=== PATIENT | female | born 1995 | race American Indian/Alaskan Native ===

== ENCOUNTER 2017-01-12 11:54 | Outpatient (CLI) | payer MEDICAID ==
[2017-01-12] MEDS ORDERED: LACTATED RINGERS 500 ML IV ONE (12:09)
[2017-01-12 12:22] VITALS: BP 109/70
[2017-01-12] MEDS ORDERED: LACTATED RINGERS 1,000 ML ONE (13:25)
[2017-01-12 14:00] LABS: Bilirubin,Urine NEG (Negative); Blood,Urine NEG (Negative); Ketones,Urine NEG (Negative); Leukocyte Esterase,Urine MOD (Negative); Mucus,Urine 3+ /HPF; Nitrite,Urine NEG (Negative); Protein,Urine <15 mg/dL mg/dL (Negative); Urobilinogen,Urine < 2.0 mg/dL (<2.0)
== END 2017-01-12 16:24 | disposition home or self-care (01) ==
LOC: TRG 11:54
PROVIDERS: ATTEND Obstetrics & Gynecology
DX: O47.02 False labor before 37 completed weeks of gestation, second trimester (principal); Z3A.24 24 weeks gestation of pregnancy
CPT/HCPCS: 59025; 81001; 96360; J7120

== ENCOUNTER 2017-01-14 17:04 | Outpatient (CLI) | payer MEDICAID ==
[2017-01-14 17:26] VITALS: BP 100/63
[2017-01-14] MEDS ORDERED: LACTATED RINGERS 500 ML IV ONE (17:40)
[2017-01-14] MEDS ORDERED: TYLENOL ONE (17:54)
[2017-01-14] MEDS ORDERED: LACTATED RINGERS 1,000 ML ONE (17:54)
[2017-01-14] MEDS ORDERED: TYLENOL PO ONE (18:15)
[2017-01-14 18:36] LABS: Bilirubin,Urine NEG (Negative); Blood,Urine NEG (Negative); Hematocrit 33.4 % (30.3-42.9); Hemoglobin 10.9 gm/dl (10.1-14.3); Ketones,Urine NEG (Negative); Leukocyte Esterase,Urine SM (Negative); Mean Corpuscular HGB Conc 33 % (30-34); Mean Corpuscular Volume 80 fl (79-97); Mucus,Urine 3+ /HPF; Nitrite,Urine NEG (Negative); Platelet Count 169 K/mm3 (140-440); Protein,Urine <15 mg/dL mg/dL (Negative); Urobilinogen,Urine < 2.0 mg/dL (<2.0); White Blood Count 5.6 K/mm3 (4.5-11.0)
[2017-01-14 18:38] LABS: Mean Corpuscular Hemoglobin 26 pg (28-32); Red Cell Distribution Width 25.4 % (13.2-15.2)
[2017-01-14] MEDS ORDERED: BENADRYL PO ONE (19:26)
== END 2017-01-14 19:43 | disposition home or self-care (01) ==
LOC: TRG 17:04
PROVIDERS: ATTEND Obstetrics & Gynecology
DX: O47.02 False labor before 37 completed weeks of gestation, second trimester (principal); Z3A.24 24 weeks gestation of pregnancy
CPT/HCPCS: 36415; 59025; 81001; 85027; 96360; J7120

== ENCOUNTER 2017-03-18 17:20 | Outpatient (CLI) | payer MEDICAID ==
[2017-03-18] MEDS ORDERED: TYLENOL PO ONE (18:48)
[2017-03-18 18:57] LABS: Bacteria,Urine 1+ /HPF (Negative); Bilirubin,Urine NEG (Negative); Blood,Urine SM (Negative); Ketones,Urine NEG (Negative); Leukocyte Esterase,Urine LG (Negative); Mucus,Urine FEW /HPF; Nitrite,Urine NEG (Negative); Protein,Urine <15 mg/dL mg/dL (Negative); Urobilinogen,Urine < 2.0 mg/dL (<2.0)
[2017-03-19 12:14] VITALS: BP 114/61
== END 2017-03-18 19:05 | disposition home or self-care (01) ==
LOC: TRG 17:20
PROVIDERS: ATTEND Obstetrics & Gynecology
DX: O47.03 False labor before 37 completed weeks of gestation, third trimester (principal); Z3A.31 31 weeks gestation of pregnancy
CPT/HCPCS: 59025; 81001

== ENCOUNTER 2017-04-14 17:58 | Outpatient (CLI) | payer MEDICAID ==
[2017-04-14 19:18] VITALS: BP 116/87
[2017-04-14] MEDS ORDERED: LACTATED RINGERS 1,000 ML IV ONE (19:23)
[2017-04-14 20:40] LABS: Bilirubin,Urine NEG (Negative); Blood,Urine NEG (Negative); Ketones,Urine NEG (Negative); Leukocyte Esterase,Urine NEG (Negative); Nitrite,Urine NEG (Negative); Protein,Urine <15 mg/dL mg/dL (Negative); RBC,Urine < 1.0 /HPF (0.0-6.0); Urobilinogen,Urine < 2.0 mg/dL (<2.0)
[2017-04-14] MEDS ORDERED: VISTARIL PO PRN (22:09)
== END 2017-04-14 22:29 | disposition home or self-care (01) ==
LOC: TRG 17:58
PROVIDERS: ATTEND Obstetrics & Gynecology
DX: O47.03 False labor before 37 completed weeks of gestation, third trimester (principal); Z3A.36 36 weeks gestation of pregnancy
CPT/HCPCS: 81001; J7120; Q0177

== ENCOUNTER 2017-04-18 09:31 | Inpatient (IN) | payer MEDICAID ==
[2017-04-18] MEDS ORDERED: LACTATED RINGERS 1,000 ML ONE (10:02)
[2017-04-18] MEDS ORDERED: BRETHINE IVP PRN (10:05)
[2017-04-18] MEDS ORDERED: ZOFRAN IV PRN ×2 (10:05→12:57)
[2017-04-18] MEDS ORDERED: SUBLIMAZE IV PRN (10:05)
[2017-04-18] MEDS ORDERED: POLYCILLIN/NS 2 GM/100 ML 2 GM/100 ML BAG IV ONE (10:05)
[2017-04-18] MEDS ORDERED: BRETHINE SUB-Q PRN (10:05)
[2017-04-18] MEDS ORDERED: XYLOCAINE 2% INFILTRATI ONE (10:05)
[2017-04-18] MEDS ORDERED: MINERAL OIL PO PRN (10:05)
[2017-04-18] MEDS ORDERED: STADOL IV PRN (10:05)
[2017-04-18] MEDS ORDERED: PHENERGAN PO PRN ×2 (10:05→12:57)
[2017-04-18] MEDS ORDERED: ePHEDrine SULFATE IV PRN ×2 (10:05→11:23)
[2017-04-18] MEDS ORDERED: NARCAN 0.4 MG/1 ML IV PRN (10:05)
--- NOTE | 2017-04-18 10:05 | History and Physical Report ---
History of Present Illness Date of examination: 04/18/17 Date of admission: 04/18/17 09:31 Chief complaint: Water broke History of present illness: Pt is a 21yo BF EDC 05/07/17; EGA 37 2/7 weeks presents to L&D complaining of SROM clear fluid at 0800 followed by irregular contractions. She received care at [facility], but records are not available, and GBS is unknown. Past History Past Medical History: no pertinent history Past Surgical History: no surgical history Family/Genetic History: none Social history: no significant social history, single - Obstetrical History Expected Date of Delivery: 05/07/17 Actual Gestation: 37 Week(s) 2 Day(s) : 1 Medications and Allergies Allergies Allergy/AdvReac Type Severity Reaction Status Date / Time No Known Allergies Allergy Verified 03/18/17 17:55 Home Medications Medication Instructions Recorded Confirmed Last Taken Type Ferrous Sulfate [Ferrous Sulfate] 1 tab PO TID 03/18/17 04/18/17 04/18/17 History Pnv with Ca,No.72/Iron/FA [Pnv 1 tab PO DAILY 03/18/17 04/18/17 04/18/17 History Plus Multivit Tab] Review of Systems All systems: negative - Vital Signs Vital signs: Vital Signs Pulse BP 102 H 124/87 04/18/17 09:56 04/18/17 09:56 Temp Pulse Resp BP Pulse Ox 102 H 124/87 04/18/17 09:56 04/18/17 09:56 - Physical Exam Breasts: Positive: deferred Cardiovascular: Regular rate Lungs: Positive: Clear to auscultation Abdomen: Positive: normal appearance Genitourinary (Female): Positive: normal external genitalia Uterus: Positive: enlarged Extremities: Positive: normal - Obstetrical FHR: category 1 Uterine Contraction Monitor Mode: External Cervical Dilatation: 4 Cervical Effacement Percentage: 70 station: -2 Uterine Contraction Pattern: Irregular Uterine Tone Measurement Phase: Contraction Uterine Contraction Intensity: Mild Results Result Diagrams: 04/18/17 10:05 All other labs normal. Assessment and Plan - Patient Problems (1) 37 weeks gestation of Onset Date: 04/18/17 Current Visit: Yes Status: Acute Plan to address problem: A: IUP @ 37 2/7 weeks in labor Unknown GBS P: Admit to L&D for expectant vaginal delivery IV Ampicillin Obtain records
[2017-04-18] MEDS ORDERED: PITOCin/NS 20 UNIT/1000ML DRIP 20 UNITS/1,000 ML BAG IV SCH ×2 (11:00→13:00)
[2017-04-18] MEDS ORDERED: PITOCin/NS 30 UNIT/500ML 30 UNITS/500 ML BAG IV SCH ×2 (11:00)
[2017-04-18] MEDS ORDERED: LACTATED RINGERS 1,000 ML IV SCH (11:00)
[2017-04-18 11:13] LABS: Hemoglobin 12.3 gm/dl (10.1-14.3); Mean Corpuscular HGB Conc 32 % (30-34); Mean Corpuscular Hemoglobin 28 pg (28-32); Mean Corpuscular Volume 88 fl (79-97); Platelet Count 142 K/mm3 (140-440); Red Blood Count 4.34 M/mm3 (3.65-5.03); Red Cell Distribution Width 17.1 % (13.2-15.2); White Blood Count 7.5 K/mm3 (4.5-11.0)
[2017-04-18] MEDS ORDERED: NARCAN 2 MG/2 ML IV PRN (11:23)
--- NOTE | 2017-04-18 11:23 | Anesthesia Consultation ---
Anesthesia Consult and Med Hx Date of service: 04/18/17 - Airway Anesthetic Teeth Evaluation: Good ROM Head & Neck: Adequate Mental/Hyoid Distance: Adequate Mallampati Class: Class II Intubation Access Assessment: Probably Good - Pulmonary Exam CTA: Yes - Cardiac Exam Cardiac Exam: RRR - Pre-Operative Health Status ASA Pre-Surgery Classification: ASA2 Proposed Anesthetic Plan: Epidural - Pulmonary Hx Asthma: No COPD: No Hx Pneumonia: No - Cardiovascular System Hx Hypertension: No - Central Nervous System Hx Seizures: No Hx Psychiatric Problems: No - Endocrine Hx Renal Disease: No Hx End Stage Renal Disease: No Hx Hypothyroidism: No Hx Hyperthyroidism: No - Hematic Hx Anemia: No Hx Sickle Cell Disease: No - Other Systems Hx Alcohol Use: No
[2017-04-18] MEDS ORDERED: fentaNYL-BUPIV 2 MCG/ML-0.125% 200 MCG/100 ML BAG EPIDURAL SCH (12:00)
[2017-04-18] MEDS ORDERED: MILK OF MAGNESIA PO PRN (12:57)
[2017-04-18] MEDS ORDERED: LANSINOH TP PRN (12:57)
[2017-04-18] MEDS ORDERED: BENADRYL PO PRN (12:57)
[2017-04-18] MEDS ORDERED: TYLENOL PO PRN (12:57)
[2017-04-18] MEDS ORDERED: DULCOLAX PR PRN (12:57)
[2017-04-18] MEDS ORDERED: NORCO 5/325 PO PRN (12:57)
[2017-04-18] MEDS ORDERED: PHENERGAN PR PRN (12:57)
[2017-04-18] MEDS ORDERED: TUCKS PAD TP PRN (12:57)
--- NOTE | 2017-04-18 12:57 | Procedure Note ---
OB Delivery Note - Delivery Date of Delivery: 04/18/17 Surgeon: TIMOTEO VENCES Estimated blood loss: 100cc - Vaginal Delivery presentation: vertex Delivery position: OA Intrapartum events: precipitous labor- <3hr Delivery induction: oxytocin Delivery augmentation: rupture of membranes Delivery monitor: external FHT, external uterine Route of delivery: Delivery placenta: spontaneous Delivery cord: 3 umbilical vessels Episiotomy: none Delivery laceration: none Anesthesia: epidural Delivery comments: placed on Mom's chest for [id number] bonding and delayed cord clamping. - Infant A at 1 minute: 8 at 5 minutes: 9 Gender: Female (2099gms)
[2017-04-18] MEDS ORDERED: SODIUM CHLORIDE FLUSH SYRINGE 10 ML IV NR (13:00)
[2017-04-18] MEDS ORDERED: POLYCILLIN/NS 1 GM/50 ML 1 GM/50 ML BAG IV SCH (14:09)
[2017-04-18] MEDS: MOTRIN PO SCH ×2 (16:34→22:18)
[2017-04-18] MEDS: FEOSOL PO SCH (22:17)
[2017-04-18] MEDS: COLACE PO SCH (22:18)
[2017-04-19 00:38] LABS: Hematocrit 32.3 % (30.3-42.9); Hemoglobin 10.8 gm/dl (10.1-14.3)
[2017-04-19] MEDS: SENOKOT S PO SCH (01:05)
[2017-04-19] MEDS: MOTRIN PO SCH ×4 (01:16→18:43)
[2017-04-19] MEDS ORDERED: PRENATAL VITAMIN PO SCH (10:00)
[2017-04-19] MEDS ORDERED: DEPO-PROVERA (CONTRACEPTION) IM ONE (11:03)
--- NOTE | 2017-04-19 11:06 | Progress Note ---
Assessment and Plan A: PP Day #1 Stable P: Follow Routine Orders D/C home in the AM Depo Provera 150mg IM prior to discharge RTO in 6 Weeks Subjective - Subjective Date of service: 04/19/17 Patient reports: appetite normal, voiding normally, pain well controlled, flatus , ambulating normally : doing well, bottle feeding Objective - Vital Signs Latest vital signs: Vital Signs Temp Pulse Pulse Resp BP BP Pulse Ox 04/19/17 09:38 98.2 F 60 18 127/87 04/19/17 04:38 18 04/19/17 00:10 97.8 F 80 18 116/73 04/18/17 22:18 18 04/18/17 20:25 98.5 F 61 18 130/84 04/18/17 13:59 99.6 F 18 131/78 04/18/17 13:51 80 131/78 04/18/17 13:39 80 137/70 04/18/17 13:35 98.0 F 18 129/81 04/18/17 13:23 161/84 04/18/17 13:08 83 134/68 04/18/17 13:04 91 H 129/81 04/18/17 12:53 90 150/89 04/18/17 12:44 104 H 93 04/18/17 12:41 93 H 99 04/18/17 12:38 96 H 162/99 04/18/17 12:36 96 H 100 04/18/17 12:31 88 100 04/18/17 12:25 87 148/88 100 04/18/17 12:23 93 H 148/97 04/18/17 12:21 92 H 100 04/18/17 12:16 98.0 F 86 18 133/84 100 04/18/17 12:11 89 100 04/18/17 12:08 82 133/84 04/18/17 12:06 90 128/82 04/18/17 12:05 82 100 04/18/17 12:04 76 125/75 04/18/17 12:02 84 129/78 04/18/17 12:01 88 100 04/18/17 12:00 86 133/77 04/18/17 11:58 77 112/71 04/18/17 11:56 86 120/75 99 04/18/17 11:54 86 121/76 04/18/17 11:52 95 H 134/77 04/18/17 11:51 94 H 100 04/18/17 11:50 90 135/77 04/18/17 11:48 90 129/80 04/18/17 11:46 96 H 131/80 04/18/17 11:45 99 H 100 04/18/17 11:44 100 H 142/83 04/18/17 11:42 82 123/75 04/18/17 11:41 94 H 100 04/18/17 11:40 84 134/80 04/18/17 11:38 73 122/75 04/18/17 11:36 81 100 04/18/17 11:35 82 134/83 04/18/17 11:32 84 139/79 04/18/17 11:30 84 116/73 04/18/17 11:29 74 100 04/18/17 11:28 87 128/81 04/18/17 11:26 82 126/83 04/18/17 11:24 88 121/76 99 Intake and Output 04/18/17 04/19/17 04/19/17 22:59 06:59 14:59 Intake Total 480 360 120 Output Total 600 Balance -120 360 120 Intake: Oral 480 360 120 Output: Urine 600 Void 600 Other: Total, Intake Amount 240 120 120 Total, Output Amount 600 # Voids Void 1 1 1 - Exam Breasts: Present: normal Cardiovascular: Present: Regular rate Lungs: Present: Clear to auscultation, Normal air movement Abdomen: Present: normal appearance, soft, normal bowel sounds Uterus: Present: normal, firm, fundal height below umbilicus Extremities: Present: normal - Labs Labs: Abnormal lab results 04/18/17 Range/Units 10:05 RDW 17.1 H (13.2-15.2) %
--- NOTE | 2017-04-19 11:07 | Discharge Summary ---
Providers - Providers Date of Admission: 04/18/17 09:31 Date of discharge: 04/20/17 Attending physician: TIMOTEO LEONARD MD Primary care physician: TIMOTEO LEONARD MD Hospitalization Reason for admission: active labor Delivery: Episiotomy: none Laceration: none Other procedures: none complications: none Discharge diagnosis: IUP at term delivered [place] baby: female Condition at discharge: Good Disposition: DC-01 TO HOME OR SELFCARE Plan - Provider Discharge Summary Activity: routine, no sex for 6 weeks, no heavy lifting 4 weeks, no strenuous exercise Diet: routine Instructions: routine Additional instructions: [] Smoking cessation referral if applicable(refer to patient education folder for contact #) [] Refer to [facility] Booklet Call your doctor immediately for: * Fever > 100.5 * Heavy vaginal bleeding ( >1 pad per hour) * Severe persistent headache * Shortness of breath * Reddened, hot, painful area to leg or breast * Drainage or odor from incision. * Keep incision clean and dry at all times and follow doctor's instructions regarding bathing/showering - Follow up plan Follow up: NAVEEN MIXON CNM [Advanced Practice Nurse] - 7 Days
[2017-04-19] MEDS: COLACE PO SCH (11:40)
[2017-04-19] MEDS: FEOSOL PO SCH (11:41)
[2017-04-19] MEDS ORDERED: BOOSTRIX IM ONE (12:57)
[2017-04-19] MEDS ORDERED: M-M-R II VACCINE SUB-Q ONE (12:57)
[2017-04-20] MEDS: MOTRIN PO SCH ×2 (00:32→05:44)
[2017-04-20] MEDS: SENOKOT S PO SCH (00:34)
[2017-04-20 09:38] VITALS: BP 137/86
== END 2017-04-20 11:35 | disposition home or self-care (01) | DRG 775 ==
LOC: LD 09:31 → OB 14:21
PROVIDERS: ADMIT Obstetrics & Gynecology; ATTEND Obstetrics & Gynecology
PROC: 10E0XZZ Delivery of Products of Conception, External Approach (ICD-10-PCS; principal; 2017-04-18)
PROC: 3E033VJ Introduction of Other Hormone into Peripheral Vein, Percutaneous Approach (ICD-10-PCS; 2017-04-18)
PROC: 00HU33Z Insertion of Infusion Device into Spinal Canal, Percutaneous Approach (ICD-10-PCS; 2017-04-18)
PROC: 3E0R3CZ (ICD-10-PCS; 2017-04-18)
DX: O62.3 Precipitate labor (principal); O42.02 Full-term premature rupture of membranes, onset of labor within 24 hours of rupture; Z3A.37 37 weeks gestation of pregnancy; Z37.0 Single live birth
CPT/HCPCS: 36415; 85014; 85018; 85027; 86850; 86900; 86901; 99211; G0463; J0290; J0595; J1050; J2590; J7120

== ENCOUNTER 2019-08-18 12:15 | Emergency (ER) | payer SELFPAY ==
--- NOTE | 2019-08-18 12:58 | Emergency Department Report ---
Blank Doc - Documentation Documentation: 24 y/o female presents to ED c/o 1 week of constipation and upper adominal pain associated with lower chest pain. Had normal BM yesterday for first time and it didnt help symptoms This initial assessment/diagnostic orders/clinical plan/treatment(s) is/are subject to change based on patient's health status, clinical progression and re- assessment by fellow clinical providers in the ED. Further treatment and workup at subsequent clinical providers discretion. Patient/guardians urged not to elope from the ED as their condition may be serious if not clinically assessed and managed. Initial orders include: KUB and urine with labxs.
[2019-08-18 12:59] VITALS: BP 109/68
--- NOTE | 2019-08-18 14:23 | Emergency Department Report ---
ED Abdominal Pain HPI - General Chief Complaint: Abdominal Pain Stated Complaint: LOWER ABD PAIN Time Seen by Provider: 08/18/19 12:57 Source: patient Mode of arrival: Ambulatory Limitations: No Limitations - History of Present Illness Initial Comments: 24-year-old -Irish female presents to the emergency room complaining of upper abdominal pain and back pain 5 days. Patient states she feels like she is having spasms in her back. Patient denies any nausea vomiting no diarrhea but has had constipation most of the week but had a BM yesterday which she reports did not help her symptoms and did not feel she emptied. MD Complaint: abdominal pain Onset/Timin -: week(s) Location: epigastric Radiation: none Migration to: no migration Severity scale (0 -10): 7 Quality: sharp Consistency: intermittent Improves With: nothing Worsens With: nothing Associated Symptoms: constipation. denies: nausea, vomiting, diarrhea, fever, dysuria - Related Data LMP Date: 07/24/19 Home Medications Medication Instructions Recorded Confirmed Last Taken Ferrous Sulfate 1 tab PO TID 03/18/17 04/18/17 04/18/17 Pnv,Calcium 72/Iron/Folic Acid 1 tab PO DAILY 03/18/17 04/18/17 04/18/17 [Pnv Plus Multivit Tab] Previous Rx's Medication Instructions Recorded Last Taken Type Ibuprofen [Motrin 600 MG tab] 600 mg PO Q8H PRN #21 tablet 08/18/19 Unknown Rx Polyethylene Glycol 3350 [Miralax] 70 gm PO QDAY #1 box 08/18/19 Unknown Rx Allergies Allergy/AdvReac Type Severity Reaction Status Date / Time No Known Allergies Allergy Verified 03/18/17 17:55 ED Review of Systems ROS: Stated complaint: LOWER ABD PAIN Other details as noted in HPI Comment: All other systems reviewed and negative Constitutional: denies: chills, fever Eyes: denies: eye pain, eye discharge, vision change ENT: denies: ear pain, throat pain ED Past Medical Hx - Past Medical History Previous Medical History?: No Hx Hypertension: No Hx Congestive Heart Failure: No Hx Diabetes: No Hx Deep Vein Thrombosis: No Hx Renal Disease: No Hx Sickle Cell Disease: No Hx Seizures: No Hx Asthma: No Hx COPD: No Hx HIV: No - Surgical History Past Surgical History?: No - Social History Smoking Status: Never Smoker Substance Use Type: Alcohol - Medications Home Medications: Home Medications Medication Instructions Recorded Confirmed Last Taken Type Ferrous Sulfate 1 tab PO TID 03/18/17 04/18/17 04/18/17 History Pnv,Calcium 72/Iron/Folic Acid 1 tab PO DAILY 03/18/17 04/18/17 04/18/17 History [Pnv Plus Multivit Tab] Ibuprofen [Motrin 600 MG tab] 600 mg PO Q8H PRN #21 tablet 08/18/19 Unknown Rx Polyethylene Glycol 3350 [Miralax] 70 gm PO QDAY #1 box 08/18/19 Unknown Rx ED Physical Exam - General Limitations: No Limitations General appearance: alert, in no apparent distress - Head Head exam: Present: atraumatic, normocephalic - Eye Eye exam: Present: normal appearance - ENT ENT exam: Present: mucous membranes moist ED Course Vital Signs 08/18/19 12:56 Temperature 98.6 F Pulse Rate 91 H Respiratory 16 Rate Blood Pressure 109/68 O2 Sat by Pulse 97 Oximetry ED Medical Decision Making - Radiology Data Radiology results: report reviewed Patient: SAI BARBOSA MR#: [id number] : 1995 Acct:[id number] Age/Sex: 24 / F ADM Date: 08/18/19 Loc: ED Attending Dr: Ordering Physician: EUSEBIO THURMAN Date of Service: 08/18/19 Procedure(s): XR abd series w cxr 1V Accession Number(s): [id number] cc: EUSEBIO THURMAN Fluoro Time In Minutes: ABDOMINAL SERIES WITH CHEST X-RAY ONE VIEW HISTORY: Abdominal pain FINDINGS: Single view of the chest is normal. Supine and upright views of the abdomen demonstrate an unremarkable bowel gas pattern. No evidence for dilated bowel, fluid levels, free air or pathologic calcifications. Moderate to severe thoracolumbar scoliosis is noted. IMPRESSION: No acute abdominal process. Scoliosis. Signer Name: Kyaw Paul Jr, MD Signed: 08/18/2019 3:37 PM Workstation Name: [id number] Transcribed By: TTR Dictated By: KYAW PUAL JR, MD Electronically Authenticated By: KYAW PAUL JR, MD Signed Date/Time: 08/18/19 1537 DD/ 1536 TD/TT: - Medical Decision Making 24-year-old -Irish female presents to the emergency room complaining of upper abdominal pain and back pain 5 days. Patient states she feels like she is having spasms in her back. Patient denies any nausea vomiting no diarrhea but has had constipation most of the week but had a BM yesterday which she reports did not help her symptoms and did not feel she emptied. Critical care attestation.: If time is entered above; I have spent that time in minutes in the direct care of this critically ill patient, excluding procedure time. ED Disposition Clinical Impression: Nonspecific abdominal pain, Spasm of back muscles Scoliosis of thoracic spine Qualifiers: Scoliosis type: unspecified scoliosis Qualified Code(s): M41.9 - Scoliosis, unspecified Constipation Qualifiers: Constipation type: slow transit constipation Qualified Code(s): K59.01 - Slow transit constipation Disposition: DC-01 TO HOME OR SELFCARE Is pt being admited?: No Does the pt Need Aspirin: No Condition: Stable Instructions: Abdominal Pain (ED) Prescriptions: Polyethylene Glycol 3350 [Miralax] 70 gm PO QDAY #1 box Ibuprofen [Motrin 600 MG tab] 600 mg PO Q8H PRN #21 tablet PRN Reason: Pain , Severe (7-10) Referrals: [facility] [Provider Group] - 3-5 Days Forms: Accompanied Note, Work/School Release Form(ED)
[2019-08-18 15:07] LABS: Alanine Aminotransferase 13 units/L (7-56); Albumin 4.6 g/dL (3.9-5); BUN/Creatinine Ratio 24; Blood Urea Nitrogen 17 mg/dL (7-17); Calcium 9.2 mg/dL (8.4-10.2); Hemolysis Index 2
[2019-08-18 15:11] LABS: Color,Urine Yellow (Yellow)
[2019-08-18 15:12] LABS: Bilirubin,Urine Negative (Negative); Blood,Urine Negative (Negative); HCG Qualitative,Urine Negative (Negative); Mucus,Urine 3+ /HPF; Urobilinogen,Urine < 2.0 mg/dL (<2.0)
[2019-08-18 15:33] LABS: Basophils # (Auto) 0.1 K/mm3 (0.0-0.1); Eosinophils # (Auto) 0.2 K/mm3 (0.0-0.4); Eosinophils % (Auto) 3.7 % (0.0-4.3); Hematocrit 32.7 % (30.3-42.9); Hemoglobin 10.1 gm/dl (10.1-14.3); Lymphocytes # (Auto) 2.3 K/mm3 (1.2-5.4); Lymphocytes % (Auto) 42.9 % (13.4-35.0); Mean Corpuscular HGB Conc 31 % (30-34); Mean Corpuscular Volume 66 fl (79-97); Monocytes # (Auto) 0.5 K/mm3 (0.0-0.8); Monocytes % (Auto) 9.3 % (0.0-7.3); Platelet Count 347 K/mm3 (140-440); Red Blood Count 4.97 M/mm3 (3.65-5.03); Red Cell Distribution Width 20.2 % (13.2-15.2)
--- NOTE | 2019-08-18 15:42 | XRay Report ---
ABDOMINAL SERIES WITH CHEST X-RAY ONE VIEW HISTORY: Abdominal pain FINDINGS: Single view of the chest is normal. Supine and upright views of the abdomen demonstrate an unremarkable bowel gas pattern. No evidence fo r dilated bowel, fluid levels, free air or pathologic calcifications. Moderate to severe thoracolumbar scoliosis is noted. IMPRESSION: No acute abdominal process. Scoliosis. Signer Name: yKaw Pearson Jr, MD Signed: 08/18/2019 3:37 PM Workstation Name: [id number]
[2019-08-18] MEDS ORDERED: IBUPROFEN PO ONE (16:13)
== END 2019-08-18 16:33 | disposition home or self-care (01) ==
LOC: ED 12:15
DX: K59.00 Constipation, unspecified (principal); M41.9 Scoliosis, unspecified; M62.830 Muscle spasm of back
CPT/HCPCS: 36415; 74022; 80053; 81001; 81025; 83690; 85025

== ENCOUNTER 2022-02-20 12:02 | Emergency (ER) | payer SELFPAY ==
[2022-02-20 14:45] LABS: Bilirubin,Urine NEG (Negative); Blood,Urine NEG (Negative); Color,Urine Yellow (Yellow); Mucus,Urine 2+ /HPF; Urobilinogen,Urine < 2.0 mg/dL (<2.0); WBC,Urine < 1.0 /HPF (0.0-6.0)
[2022-02-20 15:35] LABS: HCG Qualitative,Urine Negative (Negative)
--- NOTE | 2022-02-20 16:43 | Emergency Department Report ---
ED Female HPI - General Chief complaint: Abdominal Pain Stated complaint: NO BOWEL MOVEMENT/ABD PAIN Source: patient Mode of arrival: Ambulatory Limitations: No Limitations - History of Present Illness Initial comments: 26-year-old female presents to the ED complaining constipation x4 days. Patient states that she is concerned that she might be possibly that she had a light menstrual cycle that lasted only 3 days this this month. Patient is alert and oriented x3. Patient denies any dysuria fever , chills ,nausea or vomiting. Patient denies any abdominal pain at present. no acute distress noted. No ill appearance noted. Onset/Timin -: days(s) Improves with: none Worsens with: none Associated Symptoms: denies other symptoms - Related Data Home Medications Medication Instructions Recorded Confirmed Last Taken Ferrous Sulfate 1 tab PO TID 03/18/17 04/18/17 04/18/17 Pnv,Calcium 72/Iron/Folic Acid 1 tab PO DAILY 03/18/17 04/18/17 04/18/17 [Pnv Plus Multivit Tab] Previous Rx's Medication Instructions Recorded Last Taken Type Ibuprofen [Motrin 600 MG tab] 600 mg PO Q8H PRN #21 tablet 08/18/19 Unknown Rx Polyethylene Glycol 3350 [Miralax] 70 gm PO QDAY #1 box 08/18/19 Unknown Rx Polyethylene Glycol 3350 [Miralax] 17 gm PO DAILY 30 Days #1 bottle 02/20/22 Unknown Rx Allergies Allergy/AdvReac Type Severity Reaction Status Date / Time No Known Allergies Allergy Verified 03/18/17 17:55 ED Review of Systems ROS: Stated complaint: NO BOWEL MOVEMENT/ABD PAIN Other details as noted in HPI Constitutional: denies: chills, fever Eyes: denies: eye pain, eye discharge, vision change ENT: denies: ear pain, throat pain Respiratory: denies: cough, shortness of breath, wheezing Cardiovascular: denies: chest pain, palpitations Endocrine: no symptoms reported Gastrointestinal: constipation. denies: abdominal pain, nausea, diarrhea Genitourinary: denies: urgency, dysuria, discharge Musculoskeletal: denies: back pain, joint swelling, arthralgia Skin: denies: rash, lesions Neurological: denies: headache, weakness, paresthesias Psychiatric: denies: anxiety, depression Hematological/Lymphatic: denies: easy bleeding, easy bruising ED Past Medical Hx - Past Medical History Hx Hypertension: No Hx Congestive Heart Failure: No Hx Diabetes: No Hx Deep Vein Thrombosis: No Hx Renal Disease: No Hx Sickle Cell Disease: No Hx Seizures: No Hx Asthma: No Hx COPD: No Hx HIV: No - Social History Smoking Status: Never Smoker Substance Use Type: Alcohol - Medications Home Medications: Home Medications Medication Instructions Recorded Confirmed Last Taken Type Ferrous Sulfate 1 tab PO TID 03/18/17 04/18/17 04/18/17 History Pnv,Calcium 72/Iron/Folic Acid 1 tab PO DAILY 03/18/17 04/18/17 04/18/17 History [Pnv Plus Multivit Tab] Ibuprofen [Motrin 600 MG tab] 600 mg PO Q8H PRN #21 tablet 08/18/19 Unknown Rx Polyethylene Glycol 3350 [Miralax] 70 gm PO QDAY #1 box 08/18/19 Unknown Rx Polyethylene Glycol 3350 [Miralax] 17 gm PO DAILY 30 Days #1 bottle 02/20/22 Unknown Rx ED Physical Exam - General Limitations: No Limitations General appearance: alert, in no apparent distress - Head Head exam: Present: atraumatic, normocephalic - Eye Eye exam: Present: normal appearance - ENT ENT exam: Present: mucous membranes moist - Neck Neck exam: Present: normal inspection - Respiratory Respiratory exam: Present: normal lung sounds bilaterally. Absent: respiratory distress - Cardiovascular Cardiovascular Exam: Present: regular rate, normal rhythm. Absent: systolic murmur, diastolic murmur, rubs, gallop - GI/Abdominal GI/Abdominal exam: Present: soft, normal bowel sounds - Extremities Exam Extremities exam: Present: normal inspection - Back Exam Back exam: Present: normal inspection - Neurological Exam Neurological exam: Present: alert, oriented X3 - Psychiatric Psychiatric exam: Present: normal affect, normal mood - Skin Skin exam: Present: warm, dry, intact, normal color. Absent: rash ED Course Vital Signs 02/20/22 02/20/22 02/20/22 13:35 17:38 17:43 Temperature 98 F 98.0 F Pulse Rate 89 80 Respiratory 16 18 Rate Blood Pressure 122/81 124/78 [Left] O2 Sat by Pulse 100 99 99 Oximetry ED Medical Decision Making - Radiology Data [facility] [address] [place] [address] XRay Report Signed Patient: SAI BARBOSA MR#: [id number] : 1995 Acct:[id number] Age/Sex: 26 / F ADM Date: 02/20/22 Loc: ED Attending Dr: Ordering Physician: ISABELA FERNÁNDEZ Date of Service: 02/20/22 Procedure(s): XR abdomen 1V ap Accession Number(s): [id number] cc: ISABELA FERNÁNDEZ Fluoro Time In Minutes: ABDOMEN 1 VIEW(S) INDICATION / CLINICAL INFORMATION: consipation. COMPARISON: None available. FINDINGS: TUBES / LINES: None. BOWEL GAS PATTERN/EXTRALUMINAL GAS: Mild constipation. No acute findings. No pneumatosis or secondary signs of free air. ADDITIONAL FINDINGS: No significant additional findings. IMPRESSION: 1. No acute findings. Mild constipation. Signer Name: Fabricio Prescott MD Signed: 02/20/2022 5:06 PM Workstation Name: [id number] Transcribed By: VARINDER Dictated By: Fabricio Prescott MD Electronically Authenticated By: Fabricio Prescott MD Signed Date/Time: 02/20/221705 DD/ 05 TD/TT: - Medical Decision Making 26-year-old female presents to the ED complaining constipation x4 days. Patient states that she is concerned that she might be possibly that she had a light menstrual cycle that lasted only 3 days this this month. Patient is alert and oriented x3. Patient denies any dysuria fever , chills ,nausea or vomiting. Patient denies any abdominal pain at present. no acute distress no vanessa. No ill appearance noted. Physical examination patient is tender to the lower quadrant. Slightly distended. Denies any abdominal pain only when a palpation. Patient will be given more MiraLAX and to follow-up with a primary care doctor. Rechecked the patient is resting quietly quietly and comfortable and feeling better. I discussed the results of diagnostic study, my clinical impression and the plan for further treatment with the patient. Patient agrees with plan and discharge at this present time. All question addressed. I have given the patient instruction regarding a diagnosis ,expectation ,follow- up and return precaution. I explained to the patient that emergent condition may arise and to return to the ED for new worsen and any new persisting condition. I have explained the importance of following up with the primary care physician or referral physician listed below has instructed. The patient verbalized understanding of discharge instruction. Abnormal Lab Results 02/20/22 Unknown Urine Color Yellow Urine Turbidity Clear Urine pH 5.0 Ur Specific [place] 1.032 H Urine Protein 30 mg/dl Urine Glucose (UA) Neg Urine Ketones Neg Urine Blood Neg Urine Nitrite Neg Urine Bilirubin Neg Urine Urobilinogen < 2.0 Ur Leukocyte Esterase Neg Urine WBC (Auto) < 1.0 Urine RBC (Auto) 6.0 U Epithel Cells (Auto) 20.0 H Urine Mucus 2+ Urine HCG, Qual Negative Critical care attestation.: If time is entered above; I have spent that time in minutes in the direct care of this critically ill patient, excluding procedure time. ED Disposition Clinical Impression: Constipation Disposition: 01 HOME / SELF CARE / HOMELESS Is pt being admited?: No Does the pt Need Aspirin: No Condition: Stable Instructions: Constipation, Adult, [id number], Abdominal Pain (ED) Additional Instructions: Return return to the ED for any worsening symptom Follow-up with your primary care doctor Prescriptions: Polyethylene Glycol 3350 [Miralax] 17 gm PO DAILY 30 Days #1 bottle Referrals: DARNELL ARENAS MD [Primary Care Provider] - 3-5 Days Forms: Work/School Release Form(ED)
--- NOTE | 2022-02-20 17:11 | XRay Report ---
ABDOMEN 1 VIEW(S) INDICATION / CLINICAL INFORMATION: consipation. COMPARISON: None available. FINDINGS: TUBES / LINES: None. BOWEL GAS PATTERN/EXTRALUMINAL GAS: Mild constipation. No acute findings. No pneumatosis or secondary signs of free air. ADDITIONAL FINDINGS: No significant additional findings. IMPRESSION: 1. No acute findings. Mild constipation. Signer Name: Fabricio Prescott MD Signed: 02/20/2022 5:06 PM Workstation Name: [id number]
[2022-02-20 18:06] VITALS: BP 124/78
== END 2022-02-20 17:40 | disposition home or self-care (01) ==
LOC: ED 12:02
DX: K59.00 Constipation, unspecified (principal); F10.20 Alcohol dependence, uncomplicated
CPT/HCPCS: 74018; 81001; 81025; 99283

== ENCOUNTER 2022-05-09 18:22 | Emergency (ER) | payer SELFPAY ==
--- NOTE | 2022-05-09 21:49 | Emergency Department Report ---
ED General Adult HPI - General Chief complaint: Fall Stated complaint: HEAD INJURY/BLACK EYE X3DAYS Time Seen by Provider: 05/09/22 21:12 Source: patient, RN notes reviewed Mode of arrival: Ambulatory Limitations: No Limitations - History of Present Illness Initial comments: This patient is a pleasant and cooperative 26-year-old female who states that s he is not , who presents to the department today with a complaint of painless bilateral infraorbital ecchymosis. Patient reports a mechanical trip and fall a few days ago, where she hit her f orehead. She is not symptomatic in that capacity, and that she does not currently have headache, neck pain, dizziness, forgetfulness or confusion. She has no additional injuries or complaints. She is simply concerned about her bilateral infraorbital black and blue/ecchymosis. Specifically no endorsement of ocular pain itself, pain with EOM, or loss of vision. -: days(s) Location: face Severity scale (0 -10): 6 Improves with: none Worsens with: none Associated Symptoms: denies other symptoms - Related Data Home Medications Medication Instructions Recorded Confirmed Last Taken Ferrous Sulfate 1 tab PO TID 03/18/17 04/18/17 04/18/17 Pnv,Calcium 72/Iron/Folic Acid 1 tab PO DAILY 03/18/17 04/18/17 04/18/17 [Pnv Plus Multivit Tab] Previous Rx's Medication Instructions Recorded Last Taken Type Ibuprofen [Motrin 600 MG tab] 600 mg PO Q8H PRN #21 tablet 08/18/19 Unknown Rx Polyethylene Glycol 3350 [Miralax] 70 gm PO QDAY #1 box 08/18/19 Unknown Rx Polyethylene Glycol 3350 [Miralax] 17 gm PO DAILY 30 Days #1 bottle 02/20/22 Unknown Rx Allergies Allergy/AdvReac Type Severity Reaction Status Date / Time No Known Allergies Allergy Verified 03/18/17 17:55 ED Review of Systems ROS: Stated complaint: HEAD INJURY/BLACK EYE X3DAYS Other details as noted in HPI Comment: All other systems reviewed and negative Skin: other (Infraorbital ecchymosis) ED Past Medical Hx - Past Medical History Previous Medical History?: Yes Hx Hypertension: No Hx Congestive Heart Failure: No Hx Diabetes: No Hx Deep Vein Thrombosis: No Hx Renal Disease: No Hx Sickle Cell Disease: No Hx Seizures: No Hx Asthma: No Hx COPD: No Hx HIV: No - Surgical History Past Surgical History?: No - Social History Smoking Status: Never Smoker Substance Use Type: Alcohol - Medications Home Medications: Home Medications Medication Instructions Recorded Confirmed Last Taken Type Ferrous Sulfate 1 tab PO TID 03/18/17 04/18/17 04/18/17 History Pnv,Calcium 72/Iron/Folic Acid 1 tab PO DAILY 03/18/17 04/18/17 04/18/17 History [Pnv Plus Multivit Tab] Ibuprofen [Motrin 600 MG tab] 600 mg PO Q8H PRN #21 tablet 08/18/19 Unknown Rx Polyethylene Glycol 3350 [Miralax] 70 gm PO QDAY #1 box 08/18/19 Unknown Rx Polyethylene Glycol 3350 [Miralax] 17 gm PO DAILY 30 Days #1 bottle 02/20/22 Unknown Rx ED Physical Exam - General Limitations: No Limitations General appearance: alert, in no apparent distress - Head Head exam: Present: atraumatic, normocephalic - Eye Eye exam: Present: PERRL, EOMI, periorbital swelling, other (There is bilateral inferior periorbital ecchymosis.). Absent: normal appearance, scleral icterus, conjunctival injection, nystagmus, periorbital tenderness - ENT ENT exam: Present: normal exam, normal orophraynx, mucous membranes moist, normal external ear exam - Neck Neck exam: Present: normal inspection, full ROM. Absent: tenderness, meningismus - Respiratory Respiratory exam: Present: normal lung sounds bilaterally. Absent: respiratory distress, wheezes, rales, rhonchi, stridor, decreased breath sounds - Cardiovascular Cardiovascular Exam: Present: regular rate, normal rhythm, normal heart sounds. Absent: bradycardia, tachycardia, irregular rhythm, systolic murmur, diastolic murmur, rubs, gallop - GI/Abdominal GI/Abdominal exam: Present: soft. Absent: distended, tenderness, guarding, rebound, rigid, pulsatile mass - Extremities Exam Extremities exam: Present: normal inspection, full ROM, normal capillary refill, other (2+ pulses noted in the bilateral upper and lower extremities. There is no palpable cord. negative Homans sign. Muscular compartments are soft. The pelvis is stable.). Absent: pedal edema, calf tenderness - Back Exam Back exam: Present: normal inspection, full ROM. Absent: tenderness, CVA tenderness (R), CVA tenderness (L), paraspinal tenderness, vertebral tenderness - Neurological Exam Neurological exam: Present: alert, oriented X3, normal gait, reflexes normal, other (No facial droop. Tongue midline. Extraocular movements intact bilaterally. Facial sensation intact to light touch in V1, V2, V3 distribution bilaterally. 5 and a 5 strength in 4 extremities. Sensation intact to light touch in 4 extremities.). Absent: motor sensory deficit - Psychiatric Psychiatric exam: Present: normal affect, normal mood - Skin Skin exam: Present: warm, dry, intact, normal color, ecchymosis (Bilateral inferior periorbital ecchymosis). Absent: rash ED Course Vital Signs 05/09/22 05/09/22 05/09/22 18:43 22:34 22:35 Temperature 98.4 F Pulse Rate 97 H 70 Respiratory 20 16 Rate Blood Pressure 120/90 121/81 [Left] O2 Sat by Pulse 100 98 99 Oximetry ED Medical Decision Making - Lab Data Vital Signs 05/09/22 18:43 Temperature 98.4 F Pulse Rate 97 H Respiratory 20 Rate Blood Pressure 120/90 [Left] O2 Sat by Pulse 100 Oximetry - Medical Decision Making Differential diagnosis, including but not limited to: Closed head injury, periorbital ecchymosis, natural history of closed head injury Assessment and plan: 26-year-old female who is clinically sober and states that she is not , status post mechanical trip and fall few days ago, now with nontender bilateral inferior periorbital ecchymosis. Patient educated as to the natural history of closed head injury, and periorbital ecchymosis. Patient young, healthy, with no symptoms. Given that she is 3 days out from her initial insult, do not feel that CT scan is emergently indicated. Discussed this with the patient who is in agreement with the plan of care, and through shared decision-making, agreed to not obtain advanced imaging. She is clinically sober with a GCS of 15. Patient is clinically sober at this time. The cervical spine is cleared through nexus and [place] c spine rule Besides the nontender nonpainful bilateral inferior periorbital ecchymosis, she is not symptomatic. Return precautions are reviewed. All questions are answered. Critical care attestation.: If time is entered above; I have spent that time in minutes in the direct care of this critically ill patient, excluding procedure time. ED Disposition Clinical Impression: Periorbital ecchymosis Qualifiers: Encounter type: sequela Laterality: unspecified laterality Qualified Code(s): S00.10XS - Contusion of unspecified eyelid and periocular area, sequela Closed head injury Qualifiers: Encounter type: sequela Qualified Code(s): S09.90XS - Unspecified injury of head, sequela Disposition: 01 HOME / SELF CARE / HOMELESS Is pt being admited?: No Does the pt Need Aspirin: No Condition: Good Instructions: Contusion, Head Injury, Adult, [id number] Additional Instructions: Patient experiencing natural expected history of closed head injury. Alternate ice packs and heat packs as needed for physical pain. Avoid strenuous physical activities and contact athletics. Alternates Tylenol [id number], with ibuprofen [id number]. Follow-up with your primary care doctor within the next 2 weeks. Please return to the emergency room right away with new pain, worsened pain, migration of pain, projectile vomiting, change in mental status, confusion, inability tolerate liquid feeds, new, worsened or different symptoms not present on the initial emergency room evaluation Referrals: [facility] [Provider Group] - 7-10 days Forms: Work/School Release Form(ED)
[2022-05-09 22:35] VITALS: BP 121/81
== END 2022-05-09 22:46 | disposition home or self-care (01) ==
LOC: ED 18:22
DX: S05.10XA Contusion of eyeball and orbital tissues, unspecified eye, initial encounter (principal); S09.90XA Unspecified injury of head, initial encounter; W19.XXXA Unspecified fall, initial encounter; Y93.89 Activity, other specified; Y92.89 Other specified places as the place of occurrence of the external cause; Y99.8 Other external cause status
CPT/HCPCS: 99282